=== PATIENT | female | born 1955 | race Caucasian/White ===

== ENCOUNTER 2020-12-06 20:38 | Emergency (ER) | payer OTHER, SELFPAY ==
[2020-12-06 20:39] VITALS: BP 125/56; PULSE 101; RESP 16; TEMP 36.8; O2SAT 99; BMI 34.7
[2020-12-06 20:52] VITALS: BMI 34.7
--- NOTE | 2020-12-06 20:56 | ECG_ITS ---
APPROVED REPORT Exam: Resting ECG HR:93 bpm ECG Measurements Heart Rate 93 AXES WV 160 P 60 QRSd 88 QRS 31 QT 382 T 58 QTc 474 Conclusion Normal sinus rhythm Possible Left atrial enlargement Borderline ECG Electronically signed by : Devin Ron MD 12/07/2020 08:46:00
--- NOTE | 2020-12-06 20:56 | XR_ITS ---
PROCEDURE INFORMATION: Exam: XR Chest Exam date and time: 12/06/2020 8:56 PM Age: 65 years old Clinical indication: Other: Syncope TECHNIQUE: Imaging protocol: XR of the chest. Views: 1 view. COMPARISON: No relevant prior studies available. FINDINGS: Limitations: Evaluation is limited by body habitus. Lungs: The lungs are adequately inflated without focal consolidation. Pleural spaces: No pneumothorax or pleural effusion. Heart/Mediastinum: The cardiomediastinal silhouette has normal size and contour. Vasculature: Calcific atherosclerosis of the aorta. Bones/joints: No displaced fracture. Multilevel degenerative changes spine. Intraperitoneal space: The visualized abdomen is unremarkable. IMPRESSION: 1. No acute cardiopulmonary disease. 2. Chronic findings as above.
[2020-12-06 21:02] LABS: Basophils # 0.1 K/mm3 (0-0.2); Basophils % 1.2 % (0.1-2.0); Chloride 101 mmol/L (98-107); Eosinophils # 0.2 K/mm3 (0.0-0.4); Hemoglobin 14.4 g/dL (12.2-16.2); Lymphocytes # 6.2 K/mm3 (0.7-4.5); Lymphocytes % 57.1 % (10-50); Mean Corpuscular Hemoglobin 30.8 pg (27.0-31.2); Mean Corpuscular Volume 96.1 fl (81-99); Mean Platelet Volume 8.6 fl (7.4-10.4); Monocytes # 0.5 K/mm3 (0.1-1.0); Monocytes % 4.4 % (1.7-9.3); Neutrophils # 3.8 K/mm3 (1.8-7.8); Neutrophils % 35.3 % (37.0-80.0); Platelet Count 278 K/mm3 (142-424); Red Blood Count 4.68 M/mm3 (4.20-5.40); Red Cell Distribution Width 13.1 % (11.5-17.5); White Blood Count 10.9 K/mm3 (4.8-10.8)
[2020-12-06 21:03] LABS: Potassium 3.5 mmoL/L (3.5-5.1); Sodium 141 mmol/L (136-145)
[2020-12-06 21:05] LABS: Alanine Aminotransferase 25 U/L (12-78); Albumin Level 4.8 g/dl (3.5-5.0); Albumin/Globulin Ratio 1.5 (1.1-1.8); Alkaline Phosphatase 87 U/L (38-126); Anion Gap 14.5 mEq/L (5-15); Aspartate Amino Transferase 32 U/L (14-36); Bilirubin,Total 0.2 mg/dl (0.2-1.3); Blood Urea Nitrogen 19 mg/dl (7-17); Carbon Dioxide 29 mmol/L (22.0-30.0); Creatinine Clearance Estimated 77 mL/min (50-200); Estimated Glomerular Filt Rate 84 ml/min (>60); GFR (African American) 102 ML/MIN (>60); Globulin 3.3 g/dL (1.3-3.2); MANUAL DIFFERENTIAL MANUAL DIFFERENTIAL (MANUAL DIFF); Total Protein,Serum 8.1 g/dl (6.3-8.2)
[2020-12-06 21:06] LABS: Calcium 9.4 mg/dl (8.4-10.2); Glucose 148 mg/dl (74-100)
[2020-12-06 21:11] LABS: D-Dimer 0.48 ug/mL (0.0-0.5)
[2020-12-06 21:18] LABS: Eosinophils % 2 % (0-3); Lymphocytes % 20 % (10-50); Monocytes % 4 % (2-9); Neutrophils % 35 % (42-76); Total Cells Counted 100
[2020-12-06 21:19] LABS: Atypical Lymphocytes % 39; Platelet Estimate Normal; RBC Morphology Normal
[2020-12-06 21:23] LABS: Troponin I < 0.01 ng/ml (0.00-0.034)
--- NOTE | 2020-12-06 22:12 | [facility].EDGENADL ---
ED Disposition Clinical Impression: Syncope Qualifiers: Syncope type: unspecified Qualified Code(s): R55 - Syncope and collapse Disposition: Home, Self-Care Condition on Discharge: Fair Instructions: DI for Syncope in Adults (Fainting) Additional Instructions: You have been evaluated for syncope. Possibly vasovagal. Cannot exclude other more serious cause of syncope. It is very important that you follow-up with your primary care doctor within 24 to 48 hours. You may need to wear a Holter monitor/ cardiac event monitor. Please take all medications as prescribed. Return to the emergency department at once for any new or worsening symptoms Referrals: Provider,Referral, [Primary Care Provider] - Time of Disposition: 00:12 - Critical Care Critical Care Time: No Attestation: On 12/06/20, the high probability of a clinically significant, sudden or life threatening deterioration of the following system(s) required my full and direct attention, intervention and personal management. The time I documented below is in addition to time spent performing reported procedures but includes the following listed in this critical care notation. Medical Decision Making - Medical Records Medical records reviewed: Yes: I reviewed the patient's medical records. - Ronaldo Inquiry Pt receiving controlled substance: No Vital Signs: 12/06/20 20:39 Temperature 98.2 F Temperature Source Oral Pulse Rate [Left] 101 H Respiratory Rate 16 Blood Pressure [Right Arm] 125/56 L Blood Pressure Mean [Right Arm] 79 02 Sat by Pulse Oximetry 99 Oxygen Delivery Method Room Air - Lab Data Lab Results 12/06/20 20:50: WBC 10.9 H, RBC 4.68, Hgb 14.4, Hct 45.0, MCV 96.1, MCH 30.8, MCHC 32.0, RDW 13.1, Plt Count 278, MPV 8.6, Neut % (Auto) 35.3 L, Lymph % (Auto) 57.1 H, Dukes % (Auto) 4.4, Eos % (Auto) 2.0, Baso % (Auto) 1.2, Neut # (Auto) 3.8, Lymph # (Auto) 6.2 H, Dukes # (Auto) 0.5, Eos # (Auto) 0.2, Baso # (Auto) 0.1, Total Counted 100, Neutrophils % (Manual) 35 L, Lymphocytes % (Manual) 20, Atypical Lymphs % 39, Monocytes % (Manual) 4, Eosinophils % (Manual) 2, Platelet Estimate Normal, RBC Morphology Normal 12/06/20 20:50: D-Dimer 0.48 12/06/20 20:50: Sodium 141, Potassium 3.5, Chloride 101, Carbon Dioxide 29, Anion Gap 14.5, BUN 19 H, Creatinine 0.70, Estimated Creat Clear 77, Estimated GFR 84, Est GFR ( Amer) 102, Glucose 148 H, Calcium 9.4, Total Bilirubin 0.2, AST 32, ALT 25, Alkaline Phosphatase 87, Troponin I < 0.01, Total Protein 8.1, Albumin 4.8, Globulin 3.3 H, Albumin/Globulin Ratio 1.5 12/06/20 23:37: Troponin I < 0.01 Result diagrams: 12/06/20 20:50 12/06/20 20:50 Orders (Tests/Meds): ED MEDICATIONS Generic Name Dose Route Start Last Admin Trade Name Freq PRN Reason Stop Dose Admin Sodium Chloride 1,000 mls @ 999 mls/hr 12/06/20 21:00 12/06/20 21:07 Sod Chlor 0.9% 1000ml Bag IV 12/06/20 22:00 999 mls/hr .Q1H1M ELIAS Administration ORDERS Category Date Time Status Troponin I Q3H Lab 12/07/20 02:56 Ordered ECG Request by /Nse Stat Y 12/06/20 20:56 Ordered - ECG Data Tracing #1 Sinus rhythm with ventricular rate of 93 bpm. QRS 88, QTc 474. No ST segment elevations. No arrhythmia. Medical Decision Narrative: In summary this is a 65-year-old female with history of hypertension presenting to the emergency department after syncopal episode. Patient clinically stable on arrival. Vital signs within normal limits. She denies any somatic symptoms at this time, including chest pain, palpitations, headache, dizziness, nausea. Concern for cardiac arrhythmia, dehydration, electrolyte derangement. Cannot exclude pulmonary embolism, especially given her recent travel history. Will obtain CBC, CMP, chest x-ray, EKG, troponin profile, D-dimer. EKG shows sinus rhythm without evidence of ischemia or arrhythmia. Initial laboratory results reassuring. No renal insufficiency. Sodium, glucose,
[2020-12-07 00:05] LABS: Troponin I < 0.01 ng/ml (0.00-0.034)
[2020-12-07 00:16] VITALS: BP 153/94; PULSE 93; RESP 16; TEMP 36.8; O2SAT 98
== END 2020-12-07 00:30 | disposition home or self-care (01) ==
PROVIDERS: Emergency Provider Emergency Medicine
DX: R55 Syncope and collapse (principal)
CPT/HCPCS: 71045; 80053; 84484; 85007; 85025; 85378; 93005; 96365; 99282